=== PATIENT | male | born 1950 | race Caucasian/White ===

== ENCOUNTER 2022-05-15 12:26 | Outpatient (CLI) | payer OTHER ==
[~2022-05-15 12:26] MED LIST: Magnevist 469MG/ML 20 ML VIAL ONE
== END 2022-05-15 12:27 | disposition home or self-care (01) ==
LOC: CSHMRI 12:26
PROVIDERS: ATTEND Nurse Practitioner Gerontology
DX: R97.20 Elevated prostate specific antigen [PSA] (principal)
CPT/HCPCS: 72197; 82565; A9579